=== PATIENT | female | born 1945 | race Caucasian/White ===

== ENCOUNTER 2021-12-06 08:40 | Outpatient (CLI) | payer MEDICARE, OTHER, SELFPAY ==
--- NOTE | 2021-12-06 09:15 | USCV_ITS ---
Kristen Wright Age: 76 Gender: F : 1945 Exam Date: 12/06/2021 09:12 Ordering Phys: Willie Ortiz MD ([email or web address]) Technologist: Germain Sr Exam Location: [facility] – [place] Indication: carotid stent Risk Factors: Previous Vascular Surgery: RT ICA STENT Right Brachial BP: / Left Brachial BP: / Right Left Velocity (cm/s) Spectral Plaque Velocity (cm/s) Spectral Plaque Syst/Diast Broadening Syst/Diast Broadening 57.10/ 9.50 Prox CCA 70.90 / 13.70 52.80/ 10.90 Mid CCA 56.40 / 12.80 62.90/ 16.30 Distal CCA 39.50 / 10.70 38.80/ 11.20 Prox ICA 46.60 / 17.10 40.10/ 12.50 Mid ICA 63.70 / 17.90 56.50/ 17.70 Distal ICA 77.70 / 25.60 100.85 ECA 65.30 0.76 ICA/CCA 1.13 Antegrade Vertebral Antegrade 43.60/ 4.30 cm/s 58.30/ 14.80 cm/s Tri Subclavian Tri 85.40 109.5 0 FINDINGS Mild to moderate heterogeneous plaques at the left bifurcation and proximal internal carotid artery. Patent stent in the right ICA with a normal Doppler flow signal Antegrade flow in the vertebral arteries bilaterally Normal Doppler flow velocities in the external carotid and subclavian arteries bilaterally CONCLUSIONS Mild to moderate heterogeneous plaques at the left bifurcation and proximal internal carotid artery consistent with a less than 50% stenosis. Patent stent in the right ICA with no evidence of restenosis. No significant stenosis in the vertebral, subclavian and external carotid arteries, based on the above findings Dr Willie Ortiz MD [facility] (Electronically Signed) Final Date: 08 December 2021 22:08 S
--- NOTE | 2021-12-06 10:00 | USCV_ITS ---
KyleKristen Age: 76 Gender: F : 1945 Exam Date: 12/06/2021 09:43 Ordering Phys: Willie Ortiz MD ([email or web address]) Technologist: PILAR Exam Location: [facility] – [place] Indication: abnormal ekg BP: 130 / 80 HR: 75 Rhythm: Sinus Technical Quality: Adequate MEASUREMENTS (Male / Female) Normal Values 2D ECHO LV Diastolic Diameter PLAX 4.1 cm 4.2 - 5.9 / 3.9 - 5.3 cm LV Systolic Diameter PLAX 2.7 cm IVS Diastolic Thickness 1.1 cm 0.6 - 1.0 / 0.6 - 0.9 cm IVS Systolic Thickness 1.3 cm LVPW Diastolic Thickness 1.3 cm 0.6 - 1.0 / 0.6 - 0.9 cm LVPW Systolic Thickness 1.5 cm LVOT Diameter 2.0 cm LV Ejection Fraction 2D Teich 65.6 % LV Ejection Fraction MOD 2C 67.8 % LV Ejection Fraction 2C AL 69.4 % LA Diameter 3.4 cm LA Width 2.4 cm LA Height 3.1 cm RA Width 2.0 cm RA Height 3.6 cm Aorta at Sinotubular Diameter 2.3 cm M-MODE Aortic Annulus Diameter 3.0 cm LA Ao Ratio MM 1.1 MV E Point Septal Separation 0.6 cm DOPPLER AV Peak Velocity 120.0 cm/s LVOT Peak Velocity 85.0 cm/s AV Area Cont Eq vti 2.2 cm squared AV Area Cont Eq pk 2.3 cm squared MV Area PHT 5.8 cm squared Mitral E to A Ratio 0.5 MV E' Velocity 28.5 cm/s Mitral E to MV E' Ratio 9.1 Mitral E to LV E' Lateral Ratio 10.9 Mitral E to LV E' Septal Ratio 7.9 TR Peak Velocity 240.0 cm/s TR Peak Gradient 23.0 mmHg TR Mean Velocity 172.5 cm/s TR Mean Gradient 12.9 mmHg TR Velocity Time Integral 58.2 cm Right Atrial Pressure 3.0 mmHg Pulmonary Artery Systolic Pressu 26.0 mmHg RV Acceleration Time 0.1 s RV Ejection Time 0.3 s RV AcT/ET 0.5 FINDINGS Left Ventricle Normal left ventricular size and systolic function, EF 65 %. Mild left ventricular hypertrophy. No regional wall motion abnormalities. Grade I/IV diastolic dysfunction (abnormal relaxation filling pattern), normal to mildly elevated filling pressures. Right Ventricle Horizontal echodensities in the RV apex, possibly moderator band Right Atrium The right atrium is normal in size. Left Atrium The left atrium is normal in size. Mitral Valve Thickened mitral valve. Moderate mitral annular calcification. Trace mitral valve regurgitation. Aortic Valve Thickened aortic valve. Tricuspid Valve Trace to mild tricuspid valve regurgitation. Estimated pulmonary artery peak systolic pressure 26 mmHg Pulmonic Valve Pulmonic valve not well visualized. Pericardium No pericardial effusion. Aorta Normal ascending aorta dimension. CONCLUSIONS Normal left ventricular size and systolic function, EF 65 %. Mild left ventricular hypertrophy. No regional wall motion abnormalities. Grade I/IV diastolic dysfunction (abnormal relaxation filling pattern), normal to mildly elevated filling pressures. Thickened mitral valve. Moderate mitral annular calcification. Trace mitral valve regurgitation. Echodensities towards the right ventricular apex, may suggest a moderator band Thickened aortic valve. Trace to mild tricuspid valve regurgitation. Estimated pulmonary artery peak systolic pressure 26 mmHg. There is no pericardial effusion. There are no intracardiac masses. Dr Willie Ortiz MD [facility] (Electronically Signed) Final Date: 06 December 2021 17:54 S
== END 2021-12-06 08:41 | disposition home or self-care (01) ==
LOC: RAD 08:43
PROVIDERS: PCP Student in an Organized Health Care Education/Training Program; Visit Provider Internal Medicine Cardiovascular Disease
DX: Z09 Encounter for follow-up examination after completed treatment for conditions other than malignant neoplasm (principal); I77.9 Disorder of arteries and arterioles, unspecified; R94.31 Abnormal electrocardiogram [ECG] [EKG]; I08.3 Combined rheumatic disorders of mitral, aortic and tricuspid valves; I65.23 Occlusion and stenosis of bilateral carotid arteries
CPT/HCPCS: 93306; 93880

== ENCOUNTER → 2022-11-01 13:23 | Outpatient (BNVA) | payer MEDICARE, OTHER, SELFPAY | PROVIDERS: PCP Student in an Organized Health Care Education/Training Program; Visit Provider Internal Medicine Cardiovascular Disease | DX: R94.31 Abnormal electrocardiogram [ECG] [EKG] (principal); I10 Essential (primary) hypertension; E78.5 Hyperlipidemia, unspecified; Z86.73 Personal history of transient ischemic attack (TIA), and cerebral infarction without residual deficits; Z79.82 Long term (current) use of aspirin | CPT/HCPCS: 99214 ==

== ENCOUNTER 2022-11-09 11:12 | Outpatient (CLI) | payer MEDICARE, OTHER, SELFPAY ==
--- NOTE | 2022-11-09 12:00 | USCV_ITS ---
Kristen Wright Age: 77 Gender: F : 1945 Exam Date: 11/09/2022 11:51 Ordering Phys: Willie Ortiz MD ([email or web address]) Technologist: Danielle Arreguin Exam Location: [facility] [place] Indication: carotid stenosis Risk Factors: high cholesterol, history TIA Previous Vascular Surgery: R CEA Right Brachial BP: / Left Brachial BP: / Right Left Velocity (cm/s) Spectral Plaque Velocity (cm/s) Spectral Plaque Syst/Diast Broadening Syst/Diast Broadening 38.40/ 7.60 Prox CCA 48.20 / 12.40 46.00/ 10.70 Mid CCA 53.35 / 15.95 36.60/ 11.30 Distal CCA 34.70 / 9.60 Hetro 37.50/ 10.50 Prox ICA 52.20 / 14.80 Hetro 36.20/ 9.90 Mid ICA 45.10 / 12.40 Hetro 34.20/ 11.80 Distal ICA 52.20 / 14.00 38.80 ECA 17.50 0.81 ICA/CCA 0.85 Antegrade Vertebral Antegrade 68.40/ 19.70 cm/s 49.90/ 14.00 cm/s Tri Subclavian Tri 93.30 64.70 FINDINGS Mild to moderate plaques at the left bifurcation and proximal internal carotid artery Patent stented segment of the proximal internal carotid artery on the right side with a normal Doppler velocities Antegrade flow in the vertebral arteries bilaterally Normal Doppler flow velocities in the subclavian and external carotid arteries bilaterally. CONCLUSIONS Mild to moderate plaques at the left bifurcation and proximal internal carotid artery with a Doppler features suggesting less than 50% gnosis Patent stented segment of the right proximal ICA with no evidence of stenosis. No significant stenosis in the vertebral, subclavian or external carotid arteries, based on the above findings. Dr Willie Ortiz MD [facility] (Electronically Signed) Final Date: 12 November 2022 17:14 S
== END 2022-11-09 11:13 | disposition home or self-care (01) ==
LOC: RAD 11:23
PROVIDERS: PCP Student in an Organized Health Care Education/Training Program; Visit Provider Internal Medicine Cardiovascular Disease
DX: I65.22 Occlusion and stenosis of left carotid artery (principal)
CPT/HCPCS: 93880

== ENCOUNTER → 2023-04-11 13:17 | Outpatient (BNVA) | payer MEDICARE, OTHER, SELFPAY | PROVIDERS: PCP Student in an Organized Health Care Education/Training Program; Visit Provider Internal Medicine Cardiovascular Disease | DX: Z86.73 Personal history of transient ischemic attack (TIA), and cerebral infarction without residual deficits (principal); I10 Essential (primary) hypertension; E78.5 Hyperlipidemia, unspecified | CPT/HCPCS: 99204 ==

== ENCOUNTER 2023-04-25 10:19 | Outpatient (CLI) | payer MEDICARE, OTHER, SELFPAY ==
--- NOTE | 2023-04-25 11:15 | USCV_ITS ---
Kristen Wright Age: 77 Gender: F : 1945 Exam Date: 04/25/2023 10:42 Ordering Phys: Willie Ortiz MD ([email or web address]) Technologist: [place] [facility] [place]ication: cca stenosis Risk Factors: Previous Vascular Surgery: Right Brachial BP: / Left Brachial BP: / Right Left Velocity (cm/s) Spectral Plaque Velocity (cm/s) Spectral Plaque Syst/Diast Broadening Syst/Diast Broadening 35.60/ 12.20 Prox CCA 43.40 / 14.00 40.40/ 8.50 Mid CCA 46.20 / 14.05 38.80/ 8.50 Hetro Distal CCA 45.45 / 12.35 Hetro 28.10/ 4.20 Hetro Prox ICA 36.90 / 8.75 Hetro 30.30/ 6.40 Mid ICA 51.95 / 12.25 37.20/ 10.60 Distal ICA 49.50 / 14.10 34.00 ECA 81.15 0.92 ICA/CCA 1.60 Antegrade Vertebral Antegrade 23.00/ 7.00 cm/s 25.90/ 6.60 cm/s Bi Subclavian [place] 49.10 54.15 FINDINGS Minimal plaques at the bifurcations bilaterally Patent stented segment of the ICA on the right side Antegrade flow in the vertebral arteries bilaterally Normal Doppler flow velocities in the external carotid and subclavian arteries bilaterally CONCLUSIONS Patent stented segment of the right internal carotid artery Minimal plaques at the left bifurcation, suggesting less than 50% stenosis. No significant stenosis in the external carotid, vertebral and subclavian arteries, based on the above findings. Dr Willie Ortiz MD [facility] (Electronically Signed) Final Date: 28 April 2023 10:29 S
== END 2023-04-25 10:20 | disposition home or self-care (01) ==
LOC: RAD 10:23
PROVIDERS: PCP Student in an Organized Health Care Education/Training Program; Visit Provider Internal Medicine Cardiovascular Disease
DX: I65.23 Occlusion and stenosis of bilateral carotid arteries (principal); I77.9 Disorder of arteries and arterioles, unspecified; Z95.828 Presence of other vascular implants and grafts
CPT/HCPCS: 93880

== ENCOUNTER → 2023-10-24 09:29 | Outpatient (BNVA) | payer MEDICARE, OTHER, SELFPAY | PROVIDERS: PCP Student in an Organized Health Care Education/Training Program; Visit Provider Internal Medicine Cardiovascular Disease | DX: E78.5 Hyperlipidemia, unspecified (principal); Z86.39 Personal history of other endocrine, nutritional and metabolic disease; I10 Essential (primary) hypertension; E11.9 Type 2 diabetes mellitus without complications; Z79.84 Long term (current) use of oral hypoglycemic drugs; Z86.73 Personal history of transient ischemic attack (TIA), and cerebral infarction without residual deficits | CPT/HCPCS: 99214 ==